=== PATIENT | male | born 1950 | race Caucasian/White ===

== ENCOUNTER 2016-11-17 14:00 | Inpatient (IN) | payer OTHER ==
[~2016-11-17] VITALS: Ht 175.3 cm; Wt 129.8 kg
--- NOTE | ~2016-11-17 | OR ---
PATIENT'S NAME: MYRIAM VILLARREAL [facility] AGE: 66 Y [address] ROOM: [place] [address] LOCATION: [facility] ADMIT DATE: 11/22/2016 OR/Procedure Report DISCHARGE DATE: FAMILY PHYSICIAN: BENJY WHYTE ATTENDING PHYSICIAN: MYRIAM ONEAL SURGEON: Myriam Oneal MD [employer] TUTOR: Colton Storey CST/RETAIL STOCK CLERK and Myriam Lozoya. DATE OF PROCEDURE: 11/22/2016 PRE-OP DIAGNOSIS: Primary osteoarthritis, left hip. POST-OP DIAGNOSIS: Primary osteoarthritis, left hip. OPERATION: Left total hip arthroplasty. ANESTHESIA: Spinal anesthesia plus subcutaneous and periarticular local anesthesia (ropivacaine with epinephrine). ESTIMATED BLOOD LOSS: Approximately 275 mL. DRAIN: None. SPECIMEN: Femoral head to Pathology (degenerative joint disease, history of metastatic colon cancer). COMPLICATIONS: None. IMPLANTS: 1. Richar Trident Tritanium, size 58 mm, hemispherical, uncemented acetabular shell with one dome hole cover and no screws. 2. [place] X3 acetabular polyethylene liner with 36 mm inner diameter and 10 degree face change (elevation centered at the 4 o'clock position). 3. DePuy Young size 6, high offset, uncemented, femoral component. 4. A 36 mm metallic femoral head with +5 mm neck length. INDICATION FOR SURGERY: Mr. Villarreal is a 66-year-old male who presents with advanced left hip primary osteoarthritis and associated severely compromised activities of daily living. The patient has decided to proceed with hip replacement after having been thoroughly counseled regarding the associated risks, benefits, and limitations. We have specifically reviewed the risks and implications of infection, deep venous thrombosis, pulmonary embolism, mortality, neurovascular complications, blood transfusion (and associated potential for disease transmission or transfusion reaction), stiffness, instability, leg length discrepancy, mechanical deterioration of the PATIENT'S NAME: MYRIAM VILLARREAL [facility] AGE: 66 Y [address] ROOM: [place] [address] LOCATION: [facility] ADMIT DATE: 11/22/2016 OR/Procedure Report DISCHARGE DATE: FAMILY PHYSICIAN: BENJY WHYTE ATTENDING PHYSICIAN: MYRIAM ONEAL components (due to wear and to loosening), and the potential need for revision. DESCRIPTION OF PROCEDURE: The patient was positioned in a lateral decubitus position with the left side up after administration of anesthesia and prophylactic antibiotics. An axillary roll was placed and the non-operative leg was well padded. The pelvis was locked perpendicularly to the floor on a pegboard. The left hip and entire operative extremity were prepped and draped with vigilant sterile technique. The patient's name as well as the intended operative side and procedure were confirmed with a verbal time-out involving myself, the circulating nurse, the scrub nurse, and the anesthesiologist. The left hip was approached through a standard posterolateral incision. The fascia val and the gluteus latoya fascia were sharply divided in line with the overlying skin incision. The sciatic nerve was identified and was vigilantly protected throughout the entire case. The short external rotators and posterior capsule were divided from their respective femoral insertions and tagged with four #1 Ethibond sutures for later repair. The hip was posteriorly dislocated with combined flexion, adduction, and internal rotation. The femoral neck osteotomy was performed with an oscillating saw. Inspection of the femoral head demonstrated decreased femoral head-neck offset. There was global full-thickness loss of articular cartilage throughout the femoral head and flattening of the femoral head. There was no femoral head collapse. Circumferential acetabular exposure was obtained. Inspection of the acetabulum demonstrated a large effusion consisting of benign-appearing translucent synovial fluid. There was a 1.5 cm paralabral degenerative cyst at the 12 o'clock position. There were large osteophytes inferiorly and medially. There was a 1 cm osseous loose body. There was full-thickness loss of articular cartilage throughout the acetabular dome. Remnants of the acetabular labrum were sharply thoroughly excised. The acetabulum was sequentially progressively reamed up to 57 mm with hemispherical power reamers. The final acetabular shell was impacted into position in 20 degrees of anteversion and 45 degrees of inclination. An excellent press-fit was obtained. No supplemental dome screw fixation was necessary. A neutral trial liner was inserted. Attention was next focused upon femoral preparation. The femoral canal initiator was utilized. The femoral canal was reamed by hand to a size 4 and subsequently on power to a size 6. The size 6 reamer tightly engaged the endosteal cortex of the proximal femur. Subsequently sequentially progressively broached up to a size 6. The size 6 broach obtained excellent PATIENT'S NAME: MYRIAM VILLARREAL [facility] AGE: 66 Y [address] ROOM: [id number] [place] [id number] LOCATION: [facility] ADMIT DATE: 11/22/2016 OR/Procedure Report DISCHARGE DATE: FAMILY PHYSICIAN: BENJY WHYTE ATTENDING PHYSICIAN: MYRIAM ONEAL axial and rotational stability. Trial reductions with the above specified construct yielded acceptable stability and acceptable reproduction of leg length and offset. All trial components were removed. The final acetabular liner was inserted with excellent circumferential visualization of its locking mechanism to assure adequate deployment. The final femoral component was impacted into position. The femoral component achieved excellent axial and rotational stability. The trunnion of the femoral component was vigilantly protected prior to placement of the femoral head. The trunnion of the femoral component was thoroughly cleaned and dried prior to placement of the femoral head. The incision was thoroughly irrigated with bacteriostatic pulsatile saline lavage multiple times throughout the case. The entire joint space was thoroughly inspected and thoroughly irrigated to assure that there was no residual debris of any sort. A final reduction was then performed. After final reduction, the hip could be firmly externally rotated in full extension and zero degrees of abduction without anterior subluxation. In neutral rotation and zero degrees of abduction, the hip could be firmly flexed to 120 degrees without instability. At 90 degrees of flexion and zero degrees abduction, the hip could be internally rotated to 60 degrees before there was any hint of posterior subluxation. The posterior capsule and short external rotators were repaired through two drill holes in the posterior aspect of the greater trochanter. The fascia val and gluteus latoya fascia were closed with multiple simple and [id number]-tr-omnay interrupted # 1 Ethibond and #1 Vicryl sutures. Subcutaneous tissues were thoroughly re-irrigated with bacteriostatic pulsatile saline lavage. Subcutaneous tissues were re-approximated with simple buried interrupted #0 Vicryl sutures. The skin was closed with superficial buried interrupted 2-0 Vicryl sutures followed by a running subcuticular 3-0 Monocryl suture, followed by Octylseal, followed by Steri- Strips with benzoin, followed by an occlusive Mepilex dressing. There were no intra-operative complications. MD JAIRO HOLLEY/leoncio PATIENT'S NAME: MYRIAM VILLARREAL [facility] AGE: 66 Y [address] ROOM: [place] [address] LOCATION: [facility] ADMIT DATE: 11/22/2016 OR/Procedure Report DISCHARGE DATE: FAMILY PHYSICIAN: BENJY WHYTE ATTENDING PHYSICIAN: MYRIAM ONEAL /[id number] d: 11/22/162257 t: 11/24/162221, OPERATIVE SUMMARY
[~2016-11-17 14:00] MED LIST: ASPIR-TRIN325 MG PO; CARAFATE1 GM PO; CARTIA XT120 MG PO; CENTRUM COMPLE1 EACH PO; CHANTIX1 MG PO; CINNAMON3.7 ML; CINNAMON500 MG; COLACE100 MG PO; COQ-10100 MG; COUMADIN ** IA5 MG PO; DILAUDID2 MG PO; EFFEXOR XR150 MG PO; FEOSOL325 MG PO; FISH OIL1000 MG; LASIX20 MG PO; LIPITOR40 MG PO; LISINOPRIL20 MG PO; LYRICA75 MG PO; MELATONIN3 MG PO; MELATONIN5 MG PO; METOPROLOL TART75 MG PO; MOTRIN400 MG; NEURONTIN300 MG PO; PLAVIX75 MG PO; POTASSIUM99 M1 PO; PRILOSEC40 MG PO; PRINIVIL20 MG PO; PROTONIX40 MG PO; RANEXA ER500 MG PO; THERA-VITE W/ B1 TAB PO; TOPROL XL25 MG PO; VITAMIN D-32000 UNIT PO; VITAMIN D1000 UNI1 PO; XARELTO10 MG; XARELTO20 MG PO; ZOCOR40 MG PO
[2016-11-22 08:02] LABS: ALBUMIN 3.6 gm/dL (3.5-5.0); ALK PHOS 58 IU/L (33-138); ALT 19 IU/L (12-78); ANION GAP 13.8 (10.0-19.0); AST 13 IU/L (10-40); BLOOD UREA NITROGEN 14 mg/dL (6-24); CALCIUM 9.3 mg/dL (8.5-10.5); CHLORIDE 97 mMol/L (96-110); CO2 27 mMol/L (22-32); CREATININE 1.2 mg/dL (0.6-1.3); ESTIMATED GFR (MDRD EQUATION) > 60; POTASSIUM 4.8 mMol/L (3.7-5.1); SODIUM 133 mMol/L (135-145); TOTAL BILIRUBIN 0.6 mg/dL (0.0-1.5); TOTAL PROTEIN 7.1 g/dL (6.0-8.4)
[2016-11-22] MEDS ORDERED: CHANTIX1 MG PO (16:42)
[2016-11-23 05:01] LABS: HEMATOCRIT 33.8 % (37.0-53.0)
[2016-11-23] MEDS ORDERED: COLACE100 MG PO (11:49)
[2016-11-23] MEDS ORDERED: MIRALAX17 GM PO (11:51)
[2016-11-23] MEDS ORDERED: DILAUDID 2MG(HYD2 MG PO (11:52)
== END 2016-11-23 13:20 | disposition disaster alternative care site (69) | DRG 470 ==
LOC: GPOC 14:00 → G3N 11-22 07:05 → GPOC 11-22 14:00 → EDSTATUS 11-22 14:00 → G3N 11-22 15:00
PROVIDERS: ADMIT Orthopaedic Surgery
PROC: 0SRB02A Replacement of Left Hip Joint with Metal on Polyethylene Synthetic Substitute, Uncemented, Open Approach (ICD-10-PCS; principal; 2016-11-22)
DX: M16.12 Unilateral primary osteoarthritis, left hip (principal); C78.7 Secondary malignant neoplasm of liver and intrahepatic bile duct; C18.9 Malignant neoplasm of colon, unspecified; E11.51 Type 2 diabetes mellitus with diabetic peripheral angiopathy without gangrene; I48.0 Paroxysmal atrial fibrillation; E87.1 Hypo-osmolality and hyponatremia; I10 Essential (primary) hypertension; I25.10 Atherosclerotic heart disease of native coronary artery without angina pectoris; E78.5 Hyperlipidemia, unspecified; F41.9 Anxiety disorder, unspecified; Z95.5 Presence of coronary angioplasty implant and graft; F17.210 Nicotine dependence, cigarettes, uncomplicated; Z79.02 Long term (current) use of antithrombotics/antiplatelets; F32.9 Major depressive disorder, single episode, unspecified; E66.3 Overweight; Z68.34 Body mass index [BMI] 34.0-34.9, adult
CPT/HCPCS: A9270; C1776; J0690; J1885; J2795; J7030; J7120

== ENCOUNTER → 2017-02-21 | Outpatient (CLI) | payer MEDICARE, OTHER ==
[~2017-02-21] MED LIST changes: +DILAUDID 2MG(HYD2 MG PO; +MIRALAX17 GM PO
== END | disposition disaster alternative care site (69) ==
LOC: GRAD 09:32
DX: C18.7 Malignant neoplasm of sigmoid colon (principal); C78.7 Secondary malignant neoplasm of liver and intrahepatic bile duct; D70.1 Agranulocytosis secondary to cancer chemotherapy; K12.31 Oral mucositis (ulcerative) due to antineoplastic therapy; K57.30 Diverticulosis of large intestine without perforation or abscess without bleeding; I15.8 Other secondary hypertension; I95.1 Orthostatic hypotension; I70.90 Unspecified atherosclerosis
CPT/HCPCS: Q9967